=== PATIENT | male | born 1960 | race Caucasian/White ===

== ENCOUNTER 2024-10-16 10:53 | Outpatient (CLI) | payer BC | END 2024-10-16 10:54 | disposition home or self-care (01) | LOC: SCSRAD 10:53 | PROVIDERS: ATTEND Family Medicine | DX: G57.02 Lesion of sciatic nerve, left lower limb (principal); M76.52 Patellar tendinitis, left knee; M47.816 Spondylosis without myelopathy or radiculopathy, lumbar region; M43.16 Spondylolisthesis, lumbar region; M47.12 Other spondylosis with myelopathy, cervical region | CPT/HCPCS: 72120 ==